=== PATIENT | male | born 1950 | race Two or more races ===

== ENCOUNTER 2018-07-07 12:26 | Outpatient (CLI) | payer OTHER | END 2018-07-07 12:28 | disposition home or self-care (01) | LOC: EDBD 12:26 → RAD 12:26 | DX: N20.0 Calculus of kidney (principal); N20.1 Calculus of ureter; R31.9 Hematuria, unspecified ==

== ENCOUNTER 2018-11-26 14:00 | Outpatient (CLI) | payer OTHER | END 2018-11-26 14:02 | disposition home or self-care (01) | LOC: SONOGRAMA 14:00 | DX: E03.8 Other specified hypothyroidism (principal); E07.89 Other specified disorders of thyroid ==

== ENCOUNTER → 2019-06-24 | Outpatient (CLI) | payer OTHER | END | disposition home or self-care (01) | LOC: SONOGRAMA 12:23 → RAD 12:23 | DX: N20.0 Calculus of kidney (principal); N40.1 Benign prostatic hyperplasia with lower urinary tract symptoms; R31.29 Other microscopic hematuria ==

== ENCOUNTER 2020-02-07 18:02 | Outpatient (CLI) | payer OTHER | END 2020-02-07 18:15 | disposition home or self-care (01) | LOC: LAB 18:02 | PROVIDERS: ATTEND Urology | DX: R97.20 Elevated prostate specific antigen [PSA] (principal) ==

== ENCOUNTER 2020-03-07 07:12 | Outpatient (CLI) | payer OTHER | END 2020-03-07 07:20 | disposition home or self-care (01) | LOC: SONOGRAMA 07:12 | PROVIDERS: ATTEND Urology | DX: R97.20 Elevated prostate specific antigen [PSA] (principal) ==

== ENCOUNTER 2020-04-09 10:06 | Outpatient (CLI) | payer OTHER | END 2020-04-09 10:17 | disposition home or self-care (01) | LOC: NUCLEAR 10:06 | PROVIDERS: ATTEND Family Medicine Adult Medicine | DX: I65.23 Occlusion and stenosis of bilateral carotid arteries (principal) ==

== ENCOUNTER 2020-04-10 08:36 | Outpatient (CLI) | payer OTHER | END 2020-04-10 09:00 | disposition home or self-care (01) | LOC: NUCLEAR 08:36 | PROVIDERS: ATTEND Urology | DX: I25.10 Atherosclerotic heart disease of native coronary artery without angina pectoris (principal); I65.23 Occlusion and stenosis of bilateral carotid arteries ==

== ENCOUNTER 2020-05-18 09:15 | Inpatient (IN) | payer OTHER ==
[~2020-05-18] VITALS: Ht 167.6 cm; Wt 65.3 kg
[2020-05-18] MEDS ORDERED: ZETIA10 MG PO (11:43)
[2020-05-18] MEDS ORDERED: LEVOXYL88 MCG PO (11:43)
[2020-05-18] MEDS ORDERED: ATORVASTATIN CA40 MG PO (11:43)
[2020-05-25] MEDS ORDERED: NABUMETONE750 MG PO (11:54)
== END 2020-05-30 10:25 | disposition home or self-care (01) | DRG 708 ==
LOC: O/R 05-25 06:07 → SURH 05-25 07:00
PROVIDERS: ADMIT Urology; ATTEND Urology
PROC: 07BC0ZZ Excision of Pelvis Lymphatic, Open Approach (ICD-10-PCS; 2020-05-25)
PROC: 0VT00ZZ Resection of Prostate, Open Approach (ICD-10-PCS; principal; 2020-05-25 07:00)
PROC: 30233N0 Transfusion of Autologous Red Blood Cells into Peripheral Vein, Percutaneous Approach (ICD-10-PCS; 2020-05-26)
PROC: BW21ZZZ Computerized Tomography (CT Scan) of Abdomen and Pelvis (ICD-10-PCS; 2020-05-27)
PROC: 30233N1 Transfusion of Nonautologous Red Blood Cells into Peripheral Vein, Percutaneous Approach (ICD-10-PCS; 2020-05-28)
DX: C61 Malignant neoplasm of prostate (principal); R31.21 Asymptomatic microscopic hematuria; N20.0 Calculus of kidney; N40.1 Benign prostatic hyperplasia with lower urinary tract symptoms; E03.8 Other specified hypothyroidism

== ENCOUNTER → 2021-05-24 | Outpatient (CLI) | payer OTHER ==
[~2021-05-24] MED LIST: ATORVASTATIN CA40 MG PO; LEVOXYL88 MCG PO; NABUMETONE750 MG PO; ZETIA10 MG PO
== END | disposition home or self-care (01) ==
LOC: NUCLEAR 14:00
PROVIDERS: ATTEND Family Medicine Adult Medicine
DX: E55.9 Vitamin D deficiency, unspecified (principal); M81.0 Age-related osteoporosis without current pathological fracture

== ENCOUNTER 2021-10-16 12:59 | Outpatient (CLI) | payer OTHER | END 2021-10-16 13:07 | disposition home or self-care (01) | LOC: MAMO-SONO 12:59 | PROVIDERS: ATTEND Family Medicine Adult Medicine | DX: N63.0 Unspecified lump in unspecified breast (principal) ==

== ENCOUNTER 2021-10-31 12:48 | Outpatient (CLI) | payer OTHER | END 2021-10-31 12:53 | disposition home or self-care (01) | LOC: SONOGRAMA 12:48 | PROVIDERS: ATTEND Family Medicine Adult Medicine | DX: N63.41 Unspecified lump in right breast, subareolar (principal) ==

== ENCOUNTER 2022-09-30 06:31 | Day surgery (SDC) | payer OTHER ==
[~2022-09-30] VITALS: Ht 172.7 cm; Wt 67.1 kg
[2022-09-30] MEDS ORDERED: PERCOCET 5-3251 EACH PO (15:06)
== END 2022-09-30 17:50 | disposition home or self-care (01) ==
LOC: CIR.AMB 06:31
PROVIDERS: ATTEND Surgery
DX: N52.01 Erectile dysfunction due to arterial insufficiency (principal); N52.8 Other male erectile dysfunction; Z20.822 Contact with and (suspected) exposure to COVID-19; E03.9 Hypothyroidism, unspecified
CPT/HCPCS: 54405; C1813

== ENCOUNTER 2023-01-28 08:16 | Outpatient (CLI) | payer OTHER ==
[~2023-01-28 08:16] MED LIST changes: +PERCOCET 5-3251 EACH PO
== END 2023-01-28 08:26 | disposition home or self-care (01) ==
LOC: RX STUDY 08:16
PROVIDERS: ATTEND Family Medicine Adult Medicine
DX: R10.10 Upper abdominal pain, unspecified (principal); K21.9 Gastro-esophageal reflux disease without esophagitis